=== PATIENT | female | born 1945 | race Caucasian/White ===

== ENCOUNTER 2021-04-26 12:21 | Emergency (ER) | payer MEDICARE, OTHER, SELFPAY ==
[2021-04-26 12:23] VITALS: BP 188/94; PULSE 77; RESP 16; TEMP 35.8; O2SAT 100
--- NOTE | 2021-04-26 12:38 | RAD_ITS ---
STUDY: X-RAY - LUMBAR SPINE REASON FOR EXAM: Female, 76 years old. low back pain TECHNIQUE: 3 view(s) of the lumbar spine were obtained. COMPARISON: None FINDINGS: There is straightening of the normal lumbar lordosis. Mild levoscoliosis. There is multilevel endplate spondylosis of the lumbar vertebrae. There is multi-level degenerative disc disease with multi-level disc space narrowing. There is atherosclerotic calcification of the abdominal aorta. RAD/Lumbar Spine 2 or 3 Views IMPRESSION: Degenerative changes of the spine. Electronically Signed: Pradeep Duke MD at 13:10 EST ,
--- NOTE | 2021-04-26 12:41 | EDS_ITS ---
HPI <LENKA Schultz - Last Filed: 04/26/21 13:51> History of Present Illness Chief Complaint: Back Narrative Narrative: Patient presents with right-sided low back pain after recent mechanical falls. She states 1 month ago she missed a step and lost her balance and hit her lower back on the door frame. It has been aching since then. Then within the last week she slipped on the ice and landed catching herself with both hands and on both knees. There was no head injury. Also a few days ago she was holding a lot of painting supplies and tripped over her easel and landed on her butt. There was no head injury. Since the more recent fall she has had increased pain in her right lower back with standing. She denies radiating pain into her buttock or lower extremities, paresthesia, saddle anesthesia, or bladder/bowel incontinence. She denies headache, neck pain, or extremity pain. No aspirin or blood thinners. PFSH <LENKA Schultz Last Filed: 04/26/21 13:51> [facility] Medical History no medical history Home Medications lidocaine 1 patch TOPICAL DAILY #1 ea 04/26/21 [Rx Last Taken Unknown] Allergy/AdvReac Type Severity Reaction Status Date / Time No Known Allergies Allergy Verified 04/26/21 12:22 Surgical History no surgical history Social History Smoking Status: Never smoker ROS <LENKA Schultz - Last Filed: 04/26/21 13:51> ROS ED ROS Narrative Constitutional: Negative for fever, chills, malaise. Eyes: Negative for visual change. ENT: Negative for sore throat, ear pain, rhinorrhea. CVS: Negative for palpitations, chest pain, syncope. Respiratory: Negative for shortness of breath, cough, orthopnea. GI: Negative for abdominal pain, nausea, vomiting, diarrhea, constipation, melena, hematochezia. : Negative for dysuria, hematuria or frequency. Neuro: Negative for headache, motor/sensory dysfunction. Skin: Negative for rash, abscess, or wound. Musc: Positive for back pain, trauma. No swelling. Heme: Negative for easy bruising, bleeding, lymphadenopathy. EXAM <LENKA Schultz Last Filed: 04/26/21 13:51> Physical Exam Narrative Exam Narrative: CONST: Patient sitting in no acute distress. EYES: Normal inspection. HEAD: Normocephalic, atraumatic. NECK: Normal inspection. No midline spinal tenderness, no step off or crepitus. RESP: No respiratory distress, CTAB. No chest wall tenderness. CVS: Regular rate and rhythm, no murmur, no gallop. ABD: Soft and nontender, no guarding or rebound, nondistended. Back: Normal inspection, no midline spinal tenderness, no step-off or crepitus. Slight tenderness over right lumbar paraspinals/iliac crest. SKIN: Color normal, no rash, warm, dry, intact. EXTREMITIES: Normal appearance, no pedal edema. Full range of motion of upper and lower extremities, nontender, normal strength and sensation, normal sensation to light touch, 2+ radial and posterior tibial pulses. NEURO: Oriented x4. PSYCH: Normal affect. Const Vital Signs: 04/26/21 12:23 Temperature 96.5 F L Temperature Source Temporal Pulse Rate 77 Respiratory Rate 16 Blood Pressure 188/94 H Blood Pressure Mean 125 Pulse Ox 100 Oxygen Delivery Method Room Air <Dr. Vera Zuniga MD - Last Filed: 04/26/21 14:04> Physical Exam Const Vital Signs: 04/26/21 12:23 Temperature 96.5 F L Temperature Source Temporal Pulse Rate 77 Respiratory Rate 16 Blood Pressure 188/94 H Blood Pressure Mean 125 Pulse Ox 100 Oxygen Delivery Method Room Air MDM <LENKA Schultz - Last Filed: 04/26/21 13:51> [facility] Narrative Medical decision making narrative: Patient recently had several mechanical falls and presents with low back pain. She has no evidence of trauma to her back on exam. No midline spinal tenderness. She does have slight tenderness over the right lumbar paraspinals and iliac crest. Her cardiopulmonary exam is normal. Abdomen soft and nontender. Pelvis stable. She has no extremity pain and is neurovascularly intact. Lumbar spine x-rays were obtained and show no acute process but significant degenerative changes. I recommended she continue Tylenol and I prescribed lidocaine patches. Her falls do sound truly all m echanical and she is ambulating well in the ED. She should follow-up with her primary care doctor and was discharged in stable condition Diagnosis 1. Recurrent falls 2. Low back pain Radiography Diagnostic Testing: Clinical Impression(s) from Imaging Studies Lumbar Spine X-Ray 04/26/21 12:38 IMPRESSION: Degenerative changes of the spine. Electronically Signed: Pradeep Duke MD at 13:10 EST , <Dr. Vera Zuniga MD - Last Filed: 04/26/21 14:04> MDM Radiography Diagnostic Testing: Clinical Impression(s) from Imaging Studies Lumbar Spine X-Ray 04/26/21 12:38 IMPRESSION: Degenerative changes of the spine. Electronically Signed: Pradeep Duke MD at 13:10 EST , Treatment and Re-Evaluation Comments:: Patient seen and evaluated with PA. Patient independently seen and examined. I reviewed the extenders note and agree. In short patient presents with frequent falls with the past couple weeks. All seem to be due to mechanical nature and not because of leg weakness. Patient sitting upright in bed no acute distress Head neck examination unremarkable. Heart is regular rate and rhythm. Lung sounds are clear. Abdomen is soft and nontender. Back examination reveals mild tenderness in the right lumbar paraspinal muscles. Neuro examination reveals no focal neuro deficits. Lumbar spine x-rays obtained. Patient given Lidoderm patch. X-rays reveal scoliosis with significant arthritic changes. Test results discussed with patient and family at bedside. She will continue Tylenol be given Lidoderm patches to use topically. Return instructions provided. Discharge Plan Triage Chief Complaint: Back ED Provider: Meg Roberson Dx/Rx/DC Orders Clinical Impression: Low back pain Instructions: ED Back Contusion Prescriptions: New lidocaine 5 % adhesive patch,medicated 1 patch topical DAILY Qty: 1 RF: 0 Primary Care Provider: Care Physician,No Primary Referrals: Care Physician,No Primary [Primary Care Provider] - Activity Restrictions/Additional Instructions: Today the x-rays of your spine showed no broken bones. You do have significant arthritis in your falls likely exacerbated this. Keep taking Tylenol and I prescribed lidocaine patches to put on your back as needed. Please follow-up with your primary care doctor. Disposition Disposition: Home, Self Care Discharge Date/Time: 04/26/21 13:33
[2021-04-26] MEDS: Lidocaine 5% Patch 1 PATCH TOPICAL (13:32)
== END 2021-04-26 13:33 | disposition home or self-care (01) ==
PROVIDERS: Emergency Provider Physician Assistant; Visit Provider Physician Assistant
DX: M54.50 Low back pain, unspecified (principal); R29.6 Repeated falls
CPT/HCPCS: 72100; 99283